=== PATIENT | male | born 1985 | race Caucasian/White ===

== ENCOUNTER 2024-11-06 06:35 | Outpatient (RCR) | payer OTHER, SELFPAY | END 2024-11-06 23:59 | disposition home or self-care (01) | LOC: RPT 06:35 | PROVIDERS: ATTENDING PHYSICIAN General Practice | DX: S82.832D Other fracture of upper and lower end of left fibula, subsequent encounter for closed fracture with routine healing (principal); Z73.6 Limitation of activities due to disability; R26.89 Other abnormalities of gait and mobility; M54.50 Low back pain, unspecified; V49.9XXD Car occupant (driver) (passenger) injured in unspecified traffic accident, subsequent encounter | CPT/HCPCS: 97110; 97161 ==